=== PATIENT | female | born 1985 | race Two or more races ===

== ENCOUNTER 2021-03-17 00:23 | Emergency (ER) | payer OTHER ==
[~2021-03-17] VITALS: Ht 152.4 cm; Wt 49.1 kg
[2021-03-17 01:22] LABS: URINE HCG NEGATIVE (NEG)
[2021-03-17 01:33] LABS: CLARITY,URINE SLIGHTLY CLOUDY (Clear); COLOR,URINE YELLOW (Yellow); GLUCOSE, URINE NEGATIVE (Neg); KETONES,URINE 40 mg/dl (Neg); LEUKOCYTE ESTERASE ,URINE SMALL (Neg); NITRITES, URINE NEGATIVE (Neg); OCCULT BLOOD,URINE NEGATIVE (Neg); PH,URINE 7.5 (4.8-8.0); PROTEIN,URINE 30 mg/dl (Neg); UROBILINOGEN,URINE 0.2 E.U/dL (0.2-1.0)
[2021-03-17 01:40] LABS: BASOPHILS % (AUTO) 0.4 % (0-1); EOSINOPHILS % (AUTO) 0 % (0-6); HEMATOCRIT 33.1 % (35.0-45.0); HEMOGLOBIN 10.2 g/dl (12.0-16.0); LYMPHOCYTES # (AUTO) 0.8 X10'3 (1.1-4.8); LYMPHOCYTES % (AUTO) 18.3 % (21-51); MEAN CORPUSCULAR HEMOGLOBIN 19.5 PG (27.0-31.0); MEAN CORPUSCULAR HGB CONC 30.7 g/dL (33.0-36.5); MEAN CORPUSCULAR VOLUME 63.3 FL (78-98); MEAN PLATELET VOLUME 8.5 FL (7.4-10.4); MONOCYTES # (AUTO) 0.6 X10'3 (0-0.9); MONOCYTES % (AUTO) 12.6 % (2-12); NEUTROPHILS % (AUTO) 68.7 % (42-75); PLATELET COUNT 329 X10'3 (140-440); RED BLOOD COUNT 5.22 X10'6 (4.20-5.60); RED CELL DISTRIBUTION WIDTH 19.2 % (11.5-14.5); WHITE BLOOD COUNT 4.4 X10'3 (4.5-11.0)
[2021-03-17 01:48] LABS: ALANINE AMINOTRANSFERASE 25 U/L (12-78); ALBUMIN 4.6 G/DL (3.4-5.0); ALKALINE PHOSPHATASE 70 IU/L (46-116); ANION GAP 12 (8-16); ASPARTATE AMINO TRANSFERASE 28 U/L (10-37); BILIRUBIN,TOTAL 0.8 MG/DL (0.1-1.0); BLOOD UREA NITROGEN 8 MG/DL (7-18); BUN/CREATININE RATIO 11.3 (6.6-38.0); CALCIUM 8.6 MG/DL (8.5-10.1); CHLORIDE 97 MMOL/L (99-107); CREATININE 0.71 MG/DL (0.40-0.90); GLUCOSE 116 MG/DL (70-104); LIPASE 64 U/L (73-393); POTASSIUM 4.2 MMOL/L (3.5-5.1); SODIUM 134 MMOL/L (135-145); TOTAL CARBON DIOXIDE 24.8 MMOL/L (24-32); TOTAL PROTEIN 9.1 G/DL (6.4-8.2); eGFR > 90 ML/MIN
[2021-03-17 02:04] LABS: UA COLLECTION TYPE CLN CATCH MIDSTREAM
[2021-03-17 02:09] LABS: WBC,URINE 0-4 /HPF (0-4)
[2021-03-17 02:10] LABS: BACTERIA,URINE NONE SEEN /HPF (Neg); MUCUS STRANDS FEW /LPF (Neg); RBC,URINE NONE SEEN /HPF (0-2); SQUAMOUS EPITHELIAL CELL,UR FEW /LPF (FEW)
[2021-03-17 02:58] LABS: ANISOCYTOSIS 2+; MICROCYTOSIS 2+; PLATELET ESTIMATE NORMAL
[2021-03-17] MEDS ORDERED: pantoprazole 40 MG vial IV ONE (03:40)
[2021-03-17] MEDS ORDERED: famotidine/PF 10 mg/ml inj IV ONE (03:40)
[2021-03-17] MEDS ORDERED: ondansetron/PF 4mg/2ml inj IV ONE (03:40)
[2021-03-17] MEDS ORDERED: proCHLORperazine 10 MG/2 ml inj IV ONE (03:40)
[2021-03-17] MEDS ORDERED: normal saline 1000ml 1,000 ML IV ONE (03:40)
[2021-03-17] MEDS ORDERED: ketorolac trometh. 30mg/ml inj. IV ONE (03:40)
[2021-03-17] MEDS ORDERED: PANT-47 PO (04:44)
[2021-03-17] MEDS ORDERED: ONDA4TAB6 PO (04:44)
[2021-03-17 05:01] VITALS: BP 97/60
== END 2021-03-17 05:06 | disposition home or self-care (01) ==
LOC: ER 00:25
DX: K29.70 Gastritis, unspecified, without bleeding (principal); K22.6 Gastro-esophageal laceration-hemorrhage syndrome
CPT/HCPCS: 36415; 80053; 81001; 81025; 83690; 85008; 85025; 87077; 87088; 96361; 96374; 96375; 99284; C9113; J0780; J1885; J2405; J3490; J7030